=== PATIENT | male | born 1965 | race Caucasian/White ===

== ENCOUNTER 2017-08-25 10:46 | Emergency (ER) | payer SELFPAY ==
[2017-08-25 10:59] VITALS: BP 139/73
--- NOTE | 2017-08-25 11:04 | ER Document Report ---
ED GI/ - General Chief Complaint: Abscess Stated Complaint: ABSCESS Time Seen by Provider: 08/25/17 11:03 TRAVEL OUTSIDE OF THE [place] IN LAST 30 DAYS: No - Related Data Allergies/Adverse Reactions: No Known Allergies Allergy (Unverified 08/25/17 11:02) Physical Exam - Vital signs Vitals: Temp Pulse Resp BP Pulse Ox 98.3 F 105 H 20 139/73 H 92 08/25/17 10:57 08/25/17 10:57 08/25/17 10:57 08/25/17 10:57 08/25/17 10:57 Course - Vital Signs Vital signs: Temp Pulse Resp BP Pulse Ox 98.3 F 105 H 20 139/73 H 92 08/25/17 10:57 08/25/17 10:57 08/25/17 10:57 08/25/17 10:57 08/25/17 10:57
--- NOTE | 2017-08-25 11:22 | ER Document Report ---
HPI - HPI Patient complains to provider of: abscess/growth right chest Onset: Other - long time, worse past 3-4 months Pain Level: 2 Context: 52 yo male with sebaceous cyst right chest wall 4 cm with blood vessels on surface with purplish hue that bothers him but not particularly painful. Wants it removed. Associated Symptoms: None Exacerbated by: Denies Relieved by: Denies - ROS ROS below otherwise negative: Yes Systems Reviewed and Negative: Yes All other systems reviewed and negative - DERM Skin Color: Normal Past Medical History - General Information source: Patient - Social History Smoking Status: Former Smoker Chew tobacco use (# tins/day): No Frequency of alcohol use: None Drug Abuse: None Family History: Reviewed & Not Pertinent Patient has suicidal ideation: No Patient has homicidal ideation: No Pulmonary Medical History: Reports: Hx COPD Renal/ Medical History: Denies: Hx Peritoneal Dialysis Surgical Hx: Negative Vertical Provider Document - CONSTITUTIONAL Agree With Documented VS: Yes Exam Limitations: No Limitations General Appearance: No Apparent Distress - INFECTION CONTROL TRAVEL OUTSIDE OF THE [place] IN LAST 30 DAYS: No - HEENT HEENT: Normocephalic - NECK Neck: Supple - RESPIRATORY Respiratory: Breath Sounds Normal, No Respiratory Distress - CARDIOVASCULAR Cardiovascular: Regular Rate, Regular Rhythm - DERM Adult Front & Back Diagram: 1 - vascular cyst location Course - Vital Signs Vital signs: Temp Pulse Resp BP Pulse Ox 98.3 F 105 H 20 139/73 H 92 08/25/17 10:57 08/25/17 10:57 08/25/17 10:57 08/25/17 10:57 08/25/17 10:57 Discharge - Discharge Clinical Impression: 4 cm sebaceous vascular cyst Condition: Good Disposition: HOME, SELF-CARE Additional Instructions: You are referred to general surgery for removal of this 4 cm sebaceous cyst Call today for an appointment Return to the emergency room any concerns Referrals: AMY AUGUSTE MD [ACTIVE STAFF] - Follow up tomorrow (call today for appointment for evaluation and removal)
== END 2017-08-25 11:28 | disposition home or self-care (01) ==
LOC: ER 10:46
DX: L72.3 Sebaceous cyst (principal); J44.9 Chronic obstructive pulmonary disease, unspecified; Z87.891 Personal history of nicotine dependence
CPT/HCPCS: 99282

== ENCOUNTER → 2017-09-20 | Outpatient (CLI) | payer SELFPAY | LOC: OD 09:21 | PROVIDERS: ATTEND Internal Medicine Hematology & Oncology | DX: R06.09 Other forms of dyspnea (principal) ==

== ENCOUNTER → 2017-09-22 | Day surgery (SDC) | payer SELFPAY ==
--- NOTE | 2017-09-20 09:56 | EKG REPORT ---
SEVERITY:- ABNORMAL ECG - SINUS TACHYCARDIA PROBABLE LEFT ATRIAL ABNORMALITY LEFT AXIS DEVIATION CONSIDER ANTEROSEPTAL INFARCT : Confirmed by: Gardenia Collado MD 20-Sep-2017 09:55:55
[2017-09-20 10:00] VITALS: BP 148/98
[2017-09-20 10:38] LABS: HEMATOCRIT 39.3 % (37.9-51.0); HEMOGLOBIN 13.8 g/dL (13.5-17.0); MEAN CORPUSCULAR HEMOGLOBIN 32.1 pg (27.0-33.4); MEAN CORPUSCULAR VOLUME 92 fl (80-97); PLATELET COUNT 331 10^3/uL (150-450); RED CELL DISTRIBUTION WIDTH 14.7 % (11.5-14.0); WHITE BLOOD COUNT 15.2 10^3/uL (4.0-10.5)
--- NOTE | 2017-09-20 10:50 | RADIOLOGY REPORT (SQ) ---
EXAM DESCRIPTION: CHEST PA/LATERAL COMPLETED DATE/TIME: 09/20/2017 10:21 am REASON FOR STUDY: OTHER FORMS OF DYSPNEA COMPARISON: None. EXAM PARAMETERS: NUMBER OF VIEWS: two views TECHNIQUE: Digital Frontal and Lateral radiographic views of the chest acquired. RADIATION DOSE: NA LIMITATIONS: none FINDINGS: LUNGS AND PLEURA: Diffuse hazy opacity of the right lung particularly on the frontal view. Left lung clear. No pleural effusion or pneumothorax. MEDIASTINUM AND HILAR STRUCTURES: No masses or contour abnormalities. HEART AND VASCULAR STRUCTURES: Heart normal size. No evidence for failure. BONES: No acute findings. HARDWARE: None in the chest. OTHER: No other significant finding. IMPRESSION: DIFFUSE HAZY OPACITY OF THE RIGHT LUNG. THIS MAY BE ARTIFACT DUE TO OVERLYING SOFT TISS UE BASED ON THE CLINICAL HISTORY OF OVERLYING SKIN CANCER. LEFT LUNG CLEAR. TECHNICAL DOCUMENTATION: JOB ID: [id number] [employer]- All Rights Reserved Reading location - IP/workstation name: [email or web address]
[2017-09-20 11:00] LABS: ANION GAP 12 (5-19); BLOOD UREA NITROGEN 9 mg/dL (7-20); CALCIUM 9.7 mg/dL (8.4-10.2); CARBON DIOXIDE 28 mmol/L (22-30); CHLORIDE 94 mmol/L (98-107); GLUCOSE 108 mg/dL (75-110); POTASSIUM 4.8 mmol/L (3.6-5.0); SODIUM 134.2 mmol/L (137-145)
[~2017-09-22] MED LIST: CEFAZOLIN SODIUM 2 GM in NORMAL SALINE 100 ML IV PRN; LACTATED RINGERS 1000 ML IV PRN; LIDOCAINE 0.5% INJ-PF (5 MG/ML) 50 ML SDV SUBCUT PRN
--- NOTE | 2017-09-22 08:30 | RADIOLOGY REPORT (SQ) ---
EXAM DESCRIPTION: CHEST SINGLE VIEW COMPLETED DATE/TIME: 09/22/2017 8:15 am REASON FOR STUDY: preop COMPARISON: 09/20/2017 EXAM PARAMETERS: NUMBER OF VIEWS: One view. TECHNIQUE: Single frontal radiographic view of the chest acquired. RADIATION DOSE: NA LIMITATIONS: None. FINDINGS: LUNGS AND PLEURA: The previously described diffuse hazy opacity involving the right lung s hows interval improvement with decreasing confluence. Residual changes are identified. The left cristofer g remains clear. No pleural effusions are identified. MEDIASTINUM AND HILAR STRUCTURES: There is fullness of the right hilar region which I cannot exclude as a mass. HEART AND VASCULAR STRUCTURES: Heart normal in size. Normal vasculature. BONES: No acute findings. HARDWARE: None in the chest. OTHER: No other significant finding. IMPRESSION: Interval improvement in the previously described diffuse hazy opacity involving right esther ng as noted above. Residual changes are identified. There is fullness of the right hilar region whi ch I cannot exclude as a mass. Chest CT scan may be of value for further evaluation if clinically wa rranted. Other findings as noted above TECHNICAL DOCUMENTATION: JOB ID: [id number] [employer]- All Rights Reserved Reading location - IP/workstation name: [email or web address]
== END ==
LOC: OROUT 07:46
PROVIDERS: ATTEND Surgery
DX: Z01.818 Encounter for other preprocedural examination (principal); C44.92 Squamous cell carcinoma of skin, unspecified; J44.9 Chronic obstructive pulmonary disease, unspecified
CPT/HCPCS: 93005; 36415; 85027; 80048; 71046; 71045; 93010; J0690

== ENCOUNTER → 2017-10-17 | Outpatient (CLI) | payer OTHER ==
--- NOTE | 2017-10-17 17:18 | RADIOLOGY REPORT (SQ) ---
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 Images reviewed with lung, soft tissue and bone windows. Reconstructed coronal and sagittal MPR images reviewed. All images stored on PACS. All CT scanners at this facility use dose modulation, iterative reconstruction, and/or weight based d osing when appropriate to reduce radiation dose to as low as reasonably achievable (ALARA). [facility]: Dose Right [facility]: CareDose [facility]: Dose Right [facility]: Teradose 4D [facility]: [employer] CONTRAST TYPE AND DOSE: 79 mL of IV Isovue 370 RENAL FUNCTION: Creatinine 0.45 RADIATION DOSE: 13 mGy . LIMITATIONS: None. FINDINGS: LUNGS AND PLEURA: Complete collapse of the right upper and right middle lobe is present du e to a right hilar mass with endobronchial extension of tumor. This is best shown on axial images 16 through 38, and coronal image 40. There is narrowing to the right lower lobe bronchi by hilar tumor. The right lower lobe exhibits inc reased interstitial markings likely lymphedema related to the hilar mass. Left lung well inflated and grossly clear. No pneumothorax or pleural effusions. HILAR AND MEDIASTINAL STRUCTURES: Right hilar and sub- carinal mass with obstruction of the right upp er and middle lobe bronchi and narrowing of the right lower lobe bronchi. Conglomerate mass measures about 6 point cm craniocaudad by 4.2 cm transverse by 3.6 cm AP. There is cavitation of the mass al irco the inferior aspect of the right mainstem bronchus best shown on coronal image 41. 1.2 x 0.9 cm lymph node along the rightward aspect of the distal esophagus image 37. 1.4 by 1 cm lym ph node along the rightward aspect of the distal esophagus on axial image 42. 1.4 x 1.1 cm lymph nod e along the rightward aspect of the distal esophagus near the GE junction axial image 45. The right hilar mass encases the superior vena cava, with 75% narrowing of the superior vena cava. T his is best shown on axial images 23-30. Superior vena cava narrowing is also well demonstrated on c oronal image 32. Right subclavian vein is distended and increased in attenuation, findings are worrisome for right sub clavian vein deep venous thrombosis. Consider right upper extremity venous Doppler for followup. HEART AND VASCULAR STRUCTURES: No aneurysm or dissection. No central pulmonary emboli. No pericardi al effusion. Significant narrowing of the superior vena cava. Probable thrombus in the right subcla vian vein. Enlarged right pericardial phrenic lymph nodes are present. HARDWARE: None in the chest. UPPER ABDOMEN: Fatty liver. 3.7 x 1.9 cm mass in the periphery right lobe liver. . THYROID AND OTHER SOFT TISSUES: There are multiple cutaneous masses over the right upper anterior michelle st, 3.6 x 3.2 cm in size image 10, 1.9 x 1.6 cm image 9. Enlarged right axillary lymph nodes are pre sent with loss of central hilar fat likely malignant adenopathy. These measure less than 2 cm in gre atest diameter. BONES: No significant finding. OTHER: Dr. 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 TECHNICAL DOCUMENTATION: JOB ID: [id number] Quality ID # [id number]: Final reports with documentation of one or more dose reduction techniques (e.g., Au tomated exposure control, adjustment of the mA and/or kV according to patient size, use of iterative reconstruction technique) 2010 [employer]- All Rights Reserved Reading location - IP/workstation name: [email or web address]
== END ==
LOC: RAD 14:09
PROVIDERS: ATTEND Internal Medicine Hematology & Oncology
DX: C44.529 Squamous cell carcinoma of skin of other part of trunk (principal)
CPT/HCPCS: 71260